=== PATIENT | female | born 1955 | race Asian ===

== ENCOUNTER 2018-06-09 08:05 | Emergency (ER) | payer BC ==
[2018-06-09 09:15] LABS: BASOPHILS % (AUTO) 0.6 %; EOSINOPHILS # (AUTO) 0.1 10^3/uL (0.0-0.7); EOSINOPHILS % (AUTO) 1.2 %; HGB - HEMOGLOBIN 13.7 g/dL (12.0-16.0); LYMPHOCYTES # (AUTO) 1.4 10^3/uL (1.5-3.5); LYMPHOCYTES % (AUTO) 22.8 %; MEAN CORPUSCULAR HEMOGLOBIN 29.7 pg (27.0-31.0); MEAN CORPUSCULAR HGB CONC 33.2 g/dL (32.0-36.0); MEAN CORPUSCULAR VOLUME 89.5 fL (81.0-99.0); MEAN PLATELET VOLUME 9.1 fL (7.9-10.8); MONOCYTES # (AUTO) 0.4 10^3/uL (0.0-1.0); MONOCYTES % (AUTO) 6.8 %; NEUTROPHILS # (AUTO) 4.1 10^3/uL (1.5-6.6); NEUTROPHILS % (AUTO) 68.6 %; PLT - PLATELET COUNT 145 10^3/uL (130-450); RED BLOOD COUNT 4.63 10^6/uL (4.20-5.40); RED CELL DISTRIBUTION WIDTH 13.3 % (12.0-15.0); WHITE BLOOD COUNT 5.9 x10^3/uL (4.8-10.8)
--- NOTE | 2018-06-09 09:22 | ED Physician Documentation ---
PD HPI FOCAL NEURO - Stated complaint Stated Complaint: STROKE LIKE SYMPTOMS - Chief complaint Chief Complaint: Neuro - History obtained from History obtained from: Patient - History of Present Illness Timing - onset: Today (noted right facial weakness this morning when awoke.) Timing - duration: Hours (1-2) Timing - details: Abrupt onset, Still present (She states it feels slightly this week here in the ER than it did at home. She is still having some droop of the right face around the mouth cheek and eyebrow.) Severity of deficit: Moderate Weakness: Face (She just noticed the right facial weakness when she got up and was attempting to drink some water and then looked in the mirror and saw her face looking droopy on the right. She did not notice any weakness of her arms or legs. There is no headache. She is able to walk okay. She was using her arms and doing fine motor of holding things and such without any problems.), Right. No: Arm, Leg Numbness: No: Face, Arm, Leg Associated symptoms: No: Headache, Nausea / vomiting, Fall, Head injury Contributing factors: negative: Anticoagulated, Atrial fibrillation Baseline status: positive: A&OX3, ambulatory, indep Similar symptoms before: Has not had sx before Recently seen: Not recently seen Review of Systems Constitutional: denies: Fever, Chills, Myalgias Nose: denies: Rhinorrhea / runny nose, Congestion Throat: denies: Sore throat Cardiac: denies: Chest pain / pressure, Palpitations Respiratory: denies: Cough GI: denies: Nausea, Vomiting, Diarrhea Skin: denies: Rash, Lesions Neurologic: reports: Focal weakness (just right face). denies: Altered mental status, Headache PD PAST MEDICAL HISTORY - Past Medical History Cardiovascular: Hypertension, High cholesterol Respiratory: None Neuro: None Endocrine/Autoimmune: None - Present Medications Home Medications: Ambulatory Orders Medication Instructions Recorded Confirmed Atorvastatin [Lipitor] 0 mg 06/09/18 Dexamethasone [Decadron] 4 mg PO DAILY #5 tablet 06/09/18 Hydrochlorothiazide 12.5 mg PO 06/09/18 Losartan [Cozaar] 50 mg PO BID 06/09/18 06/09/18 Valacyclovir HCl [Valacyclovir] 500 mg PO TID #15 tablet 06/09/18 - Allergies Allergies/Adverse Reactions: Allergies Allergy/AdvReac Type Severity Reaction Status Date / Time No Known Drug Allergies Allergy Verified 06/09/18 08:13 - Living Situation Living Situation: reports: With spouse/s.o. Living Arrangement: reports: At home (They live in [place] and were just here visiting would be in their second home.) - Social History Does the pt smoke?: No Smoking Status: Never smoker Does the pt have substance abuse?: No PD ED PE NORMAL - Vitals Vital signs reviewed: Yes - General General: Alert and oriented X 3, No acute distress, Well developed/nourished - HEENT HEENT: PERRL, EOMI, Ears normal, Moist mucous membranes, Pharynx benign - Neck Neck: Supple, no meningeal sign, No adenopathy, No bruit - Cardiac Cardiac: RRR, No murmur - Respiratory Respiratory: Clear bilaterally - Abdomen Abdomen: Soft, Non tender - Back Back: No CVA TTP - Derm Derm: Normal color, Warm and dry - Extremities Extremities: No edema, No calf tenderness / cord - Neuro Neuro: Alert and oriented X 3. No: butter printer 2-12 intact (Chest the right facial weakness noted at the corner of the mouth cheek and forehead. She has not able to raise her eyebrows symmetrically with the right being much lower and the forehead creases are not as prominent on the right. She is unable to puff her cheeks on the right without air leak from the lips. She is able to close her eyes with eyelids meeting.) Eye Opening: Spontaneous Motor: Obeys Commands Verbal: Oriented GCS Score: 15 NIHSS - Level of Consciousness Level of consciousness: (0) Alert, Keenly responsive LOC Questions: (0) Answers both Q's correct LOC Commands: (0) Performs both correctly - Gaze Best Gaze: (0) Normal - Visual Visual: (0) No loss - Facial Palsy Facial Palsy: (1) Minor paralysis - Motor Arms (both separate) Motor Arm (right): (0) No drift Motor Arm (left): (0) No drift - Motor Legs (both separate) Motor Leg (right): (0) No drift Motor Leg (left): (0) No drift - Limb Ataxia Limb Ataxia: (0) Absent - Sensory Sensory: (0) Normal - Best Language Best Language: (0) No aphasia - Dysarthria Dysarthria: (0) Normal - Extinction and Inattention (formally neg Extinction and inattention: (0) No abnormality - Total Score/Results Total Score/Result: 1 Results - Vitals Vitals: Vital Signs - 24 hr 06/09/18 06/09/18 08:11 09:56 Temperature 37 C 37.1 C Heart Rate 72 64 Respiratory 20 18 Rate Blood Pressure 169/91 H 166/96 H O2 Saturation 96 98 Oxygen O2 Source Room air - Labs Labs: Laboratory Tests 06/09/18 06/09/18 06/09/18 08:12 09:05 09:05 WBC 5.9 RBC 4.63 Hgb 13.7 Hct 41.4 MCV 89.5 MCH 29.7 MCHC 33.2 RDW 13.3 Plt Count 145 MPV 9.1 Neut # (Auto) 4.1 Lymph # (Auto) 1.4 L [place] # (Auto) 0.4 Eos # (Auto) 0.1 Baso # (Auto) 0.0 Absolute Nucleated RBC 0.00 Nucleated RBC % 0.1 ESR Sodium 140 Potassium 3.3 L Chloride 103 Carbon Dioxide 27 Anion Gap 10.0 BUN 23 H Creatinine 0.5 Estimated GFR (MDRD) 124 Glucose 119 H POC Whole Bld Glucose 105 H Calcium 8.9 Total Bilirubin 0.7 AST 28 ALT 30 Alkaline Phosphatase 80 Total Protein 7.3 Albumin 4.1 Globulin 3.2 Albumin/Globulin Ratio 1.3 Lipase 32 06/09/18 09:05 WBC RBC Hgb Hct MCV MCH MCHC RDW Plt Count MPV Neut # (Auto) Lymph # (Auto) [place] # (Auto) Eos # (Auto) Baso # (Auto) Absolute Nucleated RBC Nucleated RBC % ESR 9 Sodium Potassium Chloride Carbon Dioxide Anion Gap BUN Creatinine Estimated GFR (MDRD) Glucose POC Whole Bld Glucose Calcium Total Bilirubin AST ALT Alkaline Phosphatase Total Protein Albumin Globulin Albumin/Globulin Ratio Lipase PD MEDICAL DECISION MAKING - ED course Complexity details: considered differential (She has weakness of the face including the forehead without any weakness at all of the arms or legs. Rest of the neuro exam is normal. This seems consistent with a facial palsy. Her blood sugar is good. Her electrolytes are normal. Her sed rate is normal which would exclude issues like vasculitis. She has not been in a [place] area. She does not have a history of cold sores. I will treat her with steroids and antivirals based on some article suggestions of this treatment approach for nonspecific Hallman's palsy.), d/w patient Departure - Departure Disposition: 01 Home, Self Care Clinical Impression: Facial nerve palsy Condition: Stable Record reviewed to determine appropriate education?: Yes Instructions: ED [place] Palsy Prescriptions: Dexamethasone [Decadron] 4 mg PO DAILY #5 tablet Valacyclovir HCl [Valacyclovir] 500 mg PO TID #15 tablet Comments: Continue usual medications. Stay well-hydrated. Normal activity. This looks like a facial nerve palsy (weakness) and we will treated with steroid anti-infla mmatories and an antiviral medication for 5 days. Commonly the weakness can increase over the course of several days and then take several weeks to clear. It may be shorter course as well. It does not sound like a stroke or vascular problem. Your blood tests are normal to which excludes causes like vasculitis (problems with blood flow to the nerve). Follow-up with your primary care if problems. Discharge Date/Time: 06/09/18 10:01
[2018-06-09 09:29] LABS: ALBUMIN 4.1 g/dL (3.2-5.5); ALBUMIN/GLOBULIN RATIO 1.3 (1.0-2.2); BILIRUBIN,TOTAL 0.7 mg/dL (0.2-1.0); CALCIUM 8.9 mg/dL (8.5-10.3); CREATININE 0.5 mg/dL (0.4-1.0); TOTAL PROTEIN 7.3 g/dL (6.7-8.2)
[2018-06-09] MEDS ORDERED: ACYCLOVIR 200 MG CAPSULE PO STA (09:47)
[2018-06-09] MEDS ORDERED: CHERRY SYRUP 10 ML UDC PO ONE (09:47)
[2018-06-09] MEDS ORDERED: DEXAMETHASONE 10 MG/ML VIAL PO STA (09:47)
[2018-06-09 09:57] VITALS: BP 166/96
== END 2018-06-09 10:01 | disposition home or self-care (01) ==
LOC: ED 08:05
DX: G51.0 Bell's palsy (principal); I10 Essential (primary) hypertension; E78.00 Pure hypercholesterolemia, unspecified
CPT/HCPCS: 36415; 80053; 83690; 85025; 85651; 93005; 99283; A9270